=== PATIENT | male | born 1960 | race Caucasian/White ===

== ENCOUNTER 2021-04-22 10:18 | Outpatient (REF) | payer OTHER, SELFPAY ==
[2021-04-22 10:21] LABS: MANUAL DIFF FLAG NO
[2021-04-22 10:53] LABS: Basophils Percent Auto 0.2 % (0-2); Eosinophils Absolute Auto 0.1 X10*3/uL (0.0-0.4); Eosinophils Percent Auto 1.2 % (0-4); Hematocrit 45.9 % (42-52); Hemoglobin 15.4 g/dl (14.0-18.0); Imm Gran Abs Auto 0.01 X10*3/uL (0.00-0.03); Imm Gran Pct Auto 0.2 % (0.0-0.4); Lymphocytes Absolute Auto 1.8 X10*3/uL (1.2-4.9); Lymphocytes Percent Auto 34.2 % (20-40); Mean Corpuscular HGB Conc 33.6 g/dl (31.0-36.0); Mean Corpuscular Hemoglobin 31.6 pg (27.0-33.0); Mean Corpuscular Volume 94.3 fL (80-98); Mean Platelet Volume 10.9 fL (9.4-12.4); Monocytes Absolute Auto 0.6 X10*3/uL (0.1-1.2); Monocytes Percent Auto 10.9 % (2-11); Neutrophils Absolute Auto 2.8 X10*3/uL (2.0-8.3); Neutrophils Percent Auto 53.3 % (45-73); Platelet Count 276 X10*3/uL (160-400); Red Blood Count 4.87 X10*6/uL (4.60-5.80); White Blood Count 5.2 X10*3/uL (4.8-10.8)
[2021-04-22 11:02] LABS: Glucose Urine UA NEG (NEG); Leukocyte Esterase Urine NEG (NEG); Nitrite Urine NEG (NEG); Specific Gravity - Urine 1.015 (1.005-1.025); Urine Blood NEG (NEG); Urine Ketones NEG (NEG); Urine Protein NEG (NEG-TRACE)
[2021-04-22 11:04] LABS: Appearance Urine CLEAR; Color Urine YELLOW
[2021-04-22 11:57] LABS: Alanine Aminotransferase 26 U/L (0-40); Albumin Level 4.3 g/dL (3.5-5.0); Alkaline Phosphatase 67 U/L (39-117); Anion Gap 14 (12-20); Aspartate Amino Transferase 23 U/L (5-37); Bilirubin Total 0.6 mg/dL (0.0-1.0); Blood Urea Nitrogen 16 mg/dL (9-16); Calcium 9.7 mg/dL (8.4-10.2); Carbon Dioxide 27 mmol/L (22-29); Chloride 102 mmol/L (96-108); Cholesterol 233 mg/dL; Estimated Glomerular Filt Rate > 60; Glucose Fasting 92 mg/dL (60-99); HDL Cholesterol 55 mg/dL; LDL Cholesterol Calculated 165 mg/dl; Potassium 4.2 mmol/L (3.3-5.1); Sodium 139 mmol/L (135-145); Total Protein 7.4 g/dL (6.5-8.0); Triglycerides 69 mg/dL
[2021-04-22 11:58] LABS: PSA,Total (Free>4and<10) 0.28 ng/mL (0.00-4.00)
== END 2021-04-22 10:19 | disposition home or self-care (01) ==
LOC: HO.LNP 10:18
PROVIDERS: Visit Provider Internal Medicine
DX: Z00.00 Encounter for general adult medical examination without abnormal findings (principal); Z12.5 Encounter for screening for malignant neoplasm of prostate; E78.00 Pure hypercholesterolemia, unspecified; I10 Essential (primary) hypertension
CPT/HCPCS: 80053; 80061; 81003; 84153; 85025

== ENCOUNTER 2021-12-29 12:48 | Outpatient (REF) | payer OTHER, SELFPAY ==
[2021-12-29 13:37] LABS: Thyroid Stimulating Hormone 5.35 uIU/mL (0.32-4.0)
== END 2021-12-29 12:49 | disposition home or self-care (01) ==
LOC: HO.LNP 12:48
PROVIDERS: PCP Internal Medicine; Visit Provider Internal Medicine
DX: E03.9 Hypothyroidism, unspecified (principal)
CPT/HCPCS: 84443

== ENCOUNTER 2022-04-28 13:16 | Outpatient (REF) | payer OTHER, SELFPAY ==
[2022-04-28 13:20] LABS: MANUAL DIFF FLAG NO
[2022-04-28 13:35] LABS: Basophils Percent Auto 0.3 % (0-2); Eosinophils Percent Auto 0.6 % (0-4); Hemoglobin 15.1 g/dl (14.0-18.0); Imm Gran Abs Auto 0.02 X10*3/uL (0.00-0.03); Imm Gran Pct Auto 0.3 % (0.0-0.4); Lymphocytes Absolute Auto 1.8 X10*3/uL (1.2-4.9); Lymphocytes Percent Auto 27.6 % (20-40); Mean Corpuscular HGB Conc 33.6 g/dl (31.0-36.0); Mean Corpuscular Hemoglobin 31.9 pg (27.0-33.0); Mean Corpuscular Volume 94.9 fL (80.0-98.0); Mean Platelet Volume 10.6 fL (9.4-12.4); Monocytes Absolute Auto 0.6 X10*3/uL (0.1-1.2); Monocytes Percent Auto 8.7 % (2-11); Neutrophils Percent Auto 62.5 % (45-73); Platelet Count 292 X10*3/uL (160-400); Red Blood Count 4.74 X10*6/uL (4.60-5.80); Red Cell Distribution Width 12.4 % (11.0-16.0); White Blood Count 6.4 X10*3/uL (4.8-10.8)
[2022-04-28 13:36] LABS: Appearance Urine CLEAR; Color Urine YELLOW; Glucose Urine UA NEG (NEG); Leukocyte Esterase Urine NEG (NEG); Nitrite Urine NEG (NEG); PH 7.5 (5.0-8.0); Specific Gravity - Urine 1.015 (1.005-1.025); Urine Blood NEG (NEG); Urine Ketones NEG (NEG); Urine Protein NEG (NEG-TRACE)
[2022-04-28 13:45] LABS: Amorphous Sediment Urine 1+ /LPF; RBC Urine 0 /HPF (0); Squamous Epithelial Cell Urine TRACE /LPF; WBC Urine 0 /HPF (0-4)
[2022-04-28 13:48] LABS: Alanine Aminotransferase 19 U/L (0-40); Albumin Level 4.1 g/dL (3.5-5.0); Alkaline Phosphatase 62 U/L (39-117); Anion Gap 14 (12-20); Aspartate Amino Transferase 19 U/L (5-37); Bilirubin Total 0.5 mg/dL (0.0-1.0); Blood Urea Nitrogen 14 mg/dL (9-16); Calcium 8.8 mg/dL (8.4-10.2); Carbon Dioxide 30 mmol/L (22-29); Chloride 100 mmol/L (96-108); Cholesterol 238 mg/dL; Estimated Glomerular Filt Rate > 60; Glucose Random 92 mg/dL (60-115); HDL Cholesterol 64 mg/dL; LDL Cholesterol Calculated 164 mg/dl; Potassium 4.1 mmol/L (3.3-5.1); Sodium 140 mmol/L (135-145); Total Protein 7.1 g/dL (6.5-8.0); Triglycerides 54 mg/dL
[2022-04-28 14:08] LABS: PSA,Total (Free>4and<10) 0.24 ng/mL (0.00-4.00); TSH reflex Free T4 7.09 uIU/mL (0.32-4.0)
[2022-04-28 14:46] LABS: Free T4 (Free Thyroxine) 1.07 ng/dL (0.71-1.85)
== END 2022-04-28 13:17 | disposition home or self-care (01) ==
LOC: HO.LNP 13:16
PROVIDERS: Visit Provider Internal Medicine
DX: Z00.00 Encounter for general adult medical examination without abnormal findings (principal); Z12.5 Encounter for screening for malignant neoplasm of prostate; I10 Essential (primary) hypertension; E78.00 Pure hypercholesterolemia, unspecified; E03.9 Hypothyroidism, unspecified
CPT/HCPCS: 80053; 80061; 81001; 84153; 84439; 84443; 85025

== ENCOUNTER 2023-05-03 12:22 | Outpatient (REF) | payer OTHER, SELFPAY ==
[2023-05-03 12:26] LABS: MANUAL DIFF FLAG NO
[2023-05-03 12:33] LABS: Basophils Percent Auto 0.4 % (0-2); Eosinophils Absolute Auto 0.1 X10*3/uL (0.0-0.4); Eosinophils Percent Auto 1.3 % (0-4); Hematocrit 44.9 % (42.0-52.0); Hemoglobin 15.2 g/dl (14.0-18.0); Imm Gran Abs Auto 0.01 X10*3/uL (0.00-0.03); Imm Gran Pct Auto 0.2 % (0.0-0.4); Lymphocytes Absolute Auto 1.9 X10*3/uL (1.2-4.9); Lymphocytes Percent Auto 39.7 % (20-40); Mean Corpuscular HGB Conc 33.9 g/dl (31.0-36.0); Mean Corpuscular Hemoglobin 32.1 pg (27.0-33.0); Mean Corpuscular Volume 94.9 fL (80.0-98.0); Mean Platelet Volume 11.1 fL (9.4-12.4); Monocytes Absolute Auto 0.5 X10*3/uL (0.1-1.2); Monocytes Percent Auto 9.6 % (2-11); Neutrophils Absolute Auto 2.3 x10*3/uL (2.0-8.3); Neutrophils Percent Auto 48.8 % (45-73); Platelet Count 262 X10*3/uL (160-400); Red Blood Count 4.73 X10*6/uL (4.60-5.80); White Blood Count 4.8 X10*3/uL (4.8-10.8)
[2023-05-03 12:36] LABS: Appearance Urine Clear; Color Urine Yellow; Glucose Urine UA Negative (Negative); Leukocyte Esterase Urine Negative (Negative); Nitrite Urine Negative (Negative); Specific Gravity - Urine 1.015 (1.005-1.025); Urine Blood Negative (Negative); Urine Ketones Trace mg/dL (Negative); Urine Protein Negative (Neg-Trace)
[2023-05-03 12:38] LABS: Bacteria Urine None Seen (None Seen); Hyaline Casts Urine 0-2 /LPF (0-2); RBC Urine 0-2 /HPF (0-2); Squamous Epithelial Cell Urine 0-2 /HPF (0-2); WBC Urine 0-5 /HPF (0-5)
[2023-05-03 12:54] LABS: Alanine Aminotransferase 24 U/L (0-40); Albumin Level 4.2 g/dL (3.5-5.0); Alkaline Phosphatase 59 U/L (39-117); Anion Gap 12 (12-20); Aspartate Amino Transferase 22 U/L (5-37); Bilirubin Total 0.5 mg/dL (0.0-1.0); Blood Urea Nitrogen 14 mg/dL (9-16); Calcium 9.4 mg/dL (8.4-10.2); Carbon Dioxide 29 mmol/L (22-29); Chloride 102 mmol/L (96-108); Cholesterol 258 mg/dL; Estimated Glomerular Filt Rate > 60; Glucose Fasting 81 mg/dL (60-99); HDL Cholesterol 60 mg/dL; LDL Cholesterol Calculated 182 mg/dl; Potassium 4.1 mmol/L (3.3-5.1); Sodium 139 mmol/L (135-145); Total Protein 7.6 g/dL (6.5-8.0); Triglycerides 83 mg/dL
[2023-05-03 13:10] LABS: TSH reflex Free T4 8.25 uIU/mL (0.32-4.0)
[2023-05-03 13:11] LABS: PSA,Total (Free>4and<10) 0.27 ng/mL (0.00-4.00)
[2023-05-03 14:01] LABS: Free T4 (Free Thyroxine) 0.91 ng/dL (0.71-1.85)
== END 2023-05-03 12:23 | disposition home or self-care (01) ==
LOC: HO.LNP 12:22
PROVIDERS: Visit Provider Internal Medicine
DX: Z00.00 Encounter for general adult medical examination without abnormal findings (principal); Z12.5 Encounter for screening for malignant neoplasm of prostate; I10 Essential (primary) hypertension; E03.9 Hypothyroidism, unspecified; E78.00 Pure hypercholesterolemia, unspecified
CPT/HCPCS: 80053; 80061; 81001; 84153; 84439; 84443; 85025

== ENCOUNTER 2024-06-12 11:36 | Outpatient (REF) | payer OTHER, SELFPAY ==
[2024-06-12 11:44] LABS: MANUAL DIFF FLAG NO
[2024-06-12 12:09] LABS: Basophils Percent Auto 0.4 % (0-2); Eosinophils Percent Auto 0.4 % (0-4); Hematocrit 44.2 % (42.0-52.0); Hemoglobin 15.2 g/dl (14.0-18.0); Imm Gran Abs Auto 0.02 X10*3/uL (0.00-0.03); Imm Gran Pct Auto 0.4 % (0.0-0.4); Lymphocytes Absolute Auto 1.9 X10*3/uL (1.2-4.9); Lymphocytes Percent Auto 35.9 % (20-40); Mean Corpuscular HGB Conc 34.4 g/dl (31.0-36.0); Mean Corpuscular Hemoglobin 33.1 pg (27.0-33.0); Mean Corpuscular Volume 96.3 fL (80.0-98.0); Mean Platelet Volume 10.6 fL (9.4-12.4); Monocytes Absolute Auto 0.5 X10*3/uL (0.1-1.2); Monocytes Percent Auto 10.1 % (2-11); Neutrophils Absolute Auto 2.8 x10*3/uL (2.0-8.3); Neutrophils Percent Auto 52.8 % (45-73); Platelet Count 260 X10*3/uL (160-400); Red Blood Count 4.59 X10*6/uL (4.60-5.80); Red Cell Distribution Width 12.6 % (11.0-16.0); White Blood Count 5.2 X10*3/uL (4.8-10.8)
[2024-06-12 12:13] LABS: Appearance Urine Clear; Color Urine Yellow; Glucose Urine UA Negative (Negative); Leukocyte Esterase Urine Negative (Negative); Nitrite Urine Negative (Negative); Specific Gravity - Urine 1.015 (1.005-1.025); Urine Blood Negative (Negative); Urine Ketones Negative (Negative); Urine Protein Negative (Neg-Trace)
[2024-06-12 12:15] LABS: Bacteria Urine None Seen (None Seen); Hyaline Casts Urine 0-2 /LPF (0-2); RBC Urine 0-2 /HPF (0-2); Squamous Epithelial Cell Urine 0-2 /HPF (0-2); WBC Urine 0-5 /HPF (0-5)
[2024-06-12 12:32] LABS: Alanine Aminotransferase 31 U/L (0-40); Albumin Level 4.2 g/dL (3.5-5.0); Alkaline Phosphatase 57 U/L (39-117); Anion Gap 10 (12-20); Aspartate Amino Transferase 23 U/L (5-37); Bilirubin Total 0.5 mg/dL (0.0-1.0); Blood Urea Nitrogen 12 mg/dL (9-16); Calcium 9.4 mg/dL (8.4-10.2); Carbon Dioxide 30 mmol/L (22-29); Chloride 103 mmol/L (96-108); Cholesterol 251 mg/dL (<200); Estimated Glomerular Filt Rate > 60; Glucose Fasting 93 mg/dL (60-99); HDL Cholesterol 66 mg/dL (>40); LDL Cholesterol Calculated 164 mg/dL (<100); Sodium 139 mmol/L (135-145); Total Protein 7.4 g/dL (6.5-8.0); Triglycerides 108 mg/dL (<150)
[2024-06-12 12:47] LABS: PSA,Total (Free>4and<10) 0.35 ng/mL (0.00-4.00)
[2024-06-12 12:48] LABS: TSH reflex Free T4 8.68 uIU/mL (0.32-4.0)
[2024-06-12 14:10] LABS: Free T4 (Free Thyroxine) 0.91 ng/dL (0.71-1.85)
== END 2024-06-12 11:37 | disposition home or self-care (01) ==
LOC: HO.LNP 11:36
PROVIDERS: Visit Provider Internal Medicine
DX: Z00.00 Encounter for general adult medical examination without abnormal findings (principal); I10 Essential (primary) hypertension; Z12.5 Encounter for screening for malignant neoplasm of prostate; E78.00 Pure hypercholesterolemia, unspecified; E03.9 Hypothyroidism, unspecified
CPT/HCPCS: 80053; 80061; 81001; 84153; 84439; 84443; 85025

== ENCOUNTER 2025-06-19 10:24 | Outpatient (REF) | payer OTHER, SELFPAY ==
--- OUTSIDE RECORDS SUMMARY | 2024-06-19 04:30 | XMS_ITS ---
Author Organization Khadar Martinez MD Address [address] [place], [place] [id number] Care Team Providers Care Card Brusher Name Role Phone Khadar Martinez Primary Care Provider Allergies Allergen (clinical drug ingredient) Drug/Non Drug Allergy documented on EMR Reaction Allergy Type Onset Date Status hydromorphone Dilaudid (uncoded) itch and hives Allergy Active penicillin (uncoded) hives Allergy Active montelukast singulair (uncoded) double vision Allergy Active Results Component Value Reference Range Notes Occult Blood, Stool, Guaiac Reviewed date:06/19/2024 10:48:27 AM Interpretation:Negative Performing Lab: Notes/Report: Negative Occult Blood, Stool, Guaiac Neg Reason For Referral Reason tubular adenoma of c olon Diagnosis 1 Tubular adenoma of c olon (D12.6) Referral Organization Khadar Martinez MD Referring Provider First Name Khadar Referring Provider Last Name Juan Referring Provider Speciality Internal M edicine Referred Provider Kennedy Acuna Referred Provider Specialty Gastroentero logmaite General Notes Luna Youngblood 12:51:28 PM EDT > info faxed , Luna Youngblood 06/26/2024 11:41:36 AM EDT > mailed info to patient, Luna Youngblood 10/30/2024 08:39:23 AM received a fax stating patient no showed his appt message sent to provider, Luna Youngblood 10/31/2024 09:09:07 AM > left message for patient to call office regarding above issue, Luna Youngblood 10/31/2024 11:06:22 AM > Patient called back stating he doesn't want to emelia, wants to do the [facility] instead, note will be sent to provider, Luna Youngblood 11/13/2024 02:53:47 PM >referral info mailed to patient Referral Priority Routine Referral Appointment Date 03/17/2025 REASON FOR VISIT ANNUAL EXAM Medications Medication SIG (Take, Route, Frequency, Duration) Notes Start Date End Date Status ProAir HFA 108 (90 Base) MCG/ACT 2 puffs as needed Inhalation every 6 hrs for 30 days 12/17/2017 Not-Taking Flonase 50 MCG/ACT 2 spray in each nostril Nasally Once a day Not-Taking Qvar 80 MCG/ACT 1 puff Inhalation Twice a day for 30 Not-Taking Ventolin HFA * 108 (90 Base) MCG/ACT 2 puffs as needed Inhalation every 4 hrs for 30 day(s) 01/08/2015 Not-Taking Ibuprofen 800 MG 1 tablet Orally Three times a day for 30 day(s) 03/23/2014 Not-Taking Primidone 50 MG 4 tabs Orally Twice a day Active hydroCHLOROthiazide 25 MG TAKE 1 TABLET BY MOUTH EVERY DAY Active Propranolol HCl ER 160 MG 1 capsule Oral ly Once a day for 90 days Active Ibuprofen 800 MG 1 tablet with food or milk as needed Orally Three times a day for 30 days 03/13/2022 Not-Taking Symbicort 160-4.5 MCG/ACT INHALE 2 PUFFS TWICE A DAY for 30 Not-Taking Aspir-81 81 MG 1 tablet Orally Once a day for 30 day(s) Active Social History Tobacco Use: Social History Observation Description Date Details (start date - stop date) Former Smoker NA - NA Tobacco Use/Smoking Question Answer Notes Patient is a former smoker How long has it been since y ou last smoked? > 10 years Additional Findings: Tobacco Non-User Fo rmer smoker, currently using no form of tobacco Alcohol Screen Question Answer Notes Did you have a drink contain ing alcohol in the past year? Yes How often did you have a dri nk containing alcohol in the past year? 2 to 4 times a month (2 points) How many drinks did you have on a typical day when you were drinking in the past year? 1 or 2 drinks (0 point) How often did you have 6 or more drinks on one occasion in the past year? Never (0 point) Points 2 Interpretation Negative Vital Signs Blood pressure systolic 130 mm Hg 06/19/20 24 Blood pressure diastolic 70 mm Hg 024 Height 70 in 06/19/2024 Weight 206 lbs 06/19/2024 BMI 29.55 kg/m2 06/19/2024 weight is up 2 pounds since 02-12-24 Encounters Encounter Location Date Provider Diagnosis Khadar Martinez MD [address] [place] [phone] 06/19/2024 Khadar Martinez Tubular adenoma of keyana arrington D12.6 ; Annual physical exam Z00.00 ; Aortic stenosis I35.0 ; Essential hypertension I10 ; History of aortic valve replacement Z95.2 ; Pure hypercholesterolemia E78.00 ; Colon cancer screening Z12.11 and Depression screening Z13.31 Assessments Encounter Date Diagnosis (ICD Code) Assessment Notes Treatment Notes Treatment Clinical Notes Section Notes 06/19/2024 Tubular adenoma of keyana arrington (ICD-10 - D12.6) needs appt with dr acuna 06/19/2024 Annual physical exam (ICD-10 - Z00.00) labs reviewed and discussed with patient 06/19/2024 Aortic stenosis (ICD -10 - I35.0) followed by cardiology 06/19/2024 Essential hypertensi on (ICD-10 - I10) doing well, will continue current regiment 06/19/2024 History of aortic va lve replacement (ICD-10 - Z95.2) doing well, followed by Cardiology 06/19/2024 Pure hypercholesterolemia (ICD-10 - E78.00) has come down 20 points, will continue current regiment and will continue to monitor 06/19/2024 Colon cancer screeni ng (ICD-10 - Z12.11) guaiac negative 06/19/2024 Depression screening (ICD-10 - Z13.31) negative screen Plan Of Treatment Treatment Notes Assessment Notes Tubular adenoma of colon needs appt with dr acuna Annual physical exam labs reviewed and d iscussed with patient Aortic stenosis followed by cardiolo gy Essential hypertension doing well, will continue current regiment History of aortic valve replacement beulah oro well, followed by Cardiology Pure hypercholesterolemia has come down 20 points, will continue current regiment and will continue to monitor Colon cancer screening guaiac negative Depression screening negative screen Referrals Referral Date Details 06/19/2024 06/19/2024, tubular adenoma of colon, Kennedy Acuna Next Appt Details Follow Up: 6 Months, Reason: Provider Name:Khadar Wells ier, 07/03/2025 08:30:00 AM, [address] [place] [address], [address], [place], [place], [id number], Progress Notes * NABEEL LeoncioDOB:[birth year] (64 yo M)Acc No.[id number]:06/19/2024 Progress Notes Patient: Leoncio Leon Provider: Daryl Martinez MD :1960 A ge:64 Y S ex:Male Date:06/19/2024 Address:[address] [place], [place] [id number] Subjective: * Chief Complaints: * A NNUAL EXAM * HPI: D epression Screening: PHQ-9 L ittle interest or pleasure in doing things N ot at all, F eeling down, depressed, or hopeless N ot at all, T rouble falling or staying asleep, or sleeping too much N ot at all, F eeling tired or having little energy N ot at all, P oor appetite or overeating N ot at all, F eeling bad about yourself or that you are a failure, or have let yourself or your family down N ot at all, T rouble concentrating on things, such as reading the newspaper or watching television N ot at all, M oving or speaking so slowly that other people could have noticed; or the opposite, being so fidgety or restless that you have been moving around a lot more than usual N ot at all, T houghts that you would be better off or of hurting yourself in some way N ot at all, T otal Score 0 . I nterpretation and Intervention D epression Screening Findings N egative, F ollow-Up for Depression : review of PHQ-9 found negative result, no follow-up needed. C ommunication Needs: Communication Needs D oes the patient have a hearing impairment N o, D oes the patient have a vision impairment? Y es, I f yes, what is the vision impairment? G lasses, D oes the patient have a cognition impairment? N o. S JESSICA Questions: SDOH Questions I n the past year have you been worried about losing housing? N o, I n the past year have you or any family members you live with been unable to get any of the following when it was really needed? Check all that apply: N one. S ymptom(s): patient is a 64 yo male here for yearly evaluation with revie of recent labs and follow up of chronic issues. * ROS: G eneral/Constitutional: Patient denies f atigue , headache. C hange in appetite?denies. C hills d enies. F ever d enies. O phthalmologic: Blurred vision d enies. D ischarge d enies. P ain d enies. E NT: Patient denies d ecreased sense of smell , any loss of taste , sore throat. D ecreased hearing d enies. S ore throat d enies. S wollen glands d enies. E ndocrine: Cold intolerance d enies. E xcessive thirst d enies. H eat intolerance d enies. W eight loss d enies. R espiratory: Cough d enies. S hortness of breath at rest d enies. S hortness of breath with exertion d enies. W heezing d enies. C ardiovascular: Chest pain at rest d enies. C hest pain with exertion?denies. I rregular heartbeat d enies. S hortness of breath d enies. ? G astrointestinal: Abdominal pain d enies. C hange in bowel habits d enies. D iarrhea d enies. N ausea d enies. R ectal bleeding d enies. V omiting d enies . G enitourinary: Blood in urine d enies. D ifficulty urinating d enies. F requent urination d enies. M usculoskeletal: Patient denies m uscle aches. P ainful joints d enies. W eakness d enies. P eripheral Vascular: Patient denies r ed and blue toes. S kin: Dry skin d enies. I tching d enies. D enies?Mole(s), changes in moles, new moles or any lesions of concern. D enies P hotosensitivity. R curtis d enies. N eurologic: Dizziness d enies. F ainting d enies. H eadache?denies. * Medical History: * Surgical History: * Hospitalization/Major Diagno stic Procedure: * Family History: F ather: alive 83 yrs, diabetes mellitus. M other: alive 83 yrs, Healthy. 1 brother(s) , 1 sister(s) - healthy. . Denies mental health/substance abuse family history, Denies mental health/substance abuse family history, No pertinent family medical history, No pertinent family medical history, No pertinent family medical history. * Social History: T obacco Use: T obacco Use/Smoking P atient is a f ormer smoker, H ow long has it been since you last smoked? > 10 years, A dditional Findings: Tobacco Non-User F ormer smoker, currently using no form of tobacco. D rugs/Alcohol: A lcohol Screen D id you have a drink containing alcohol in the past year? Y es, H ow often did you have a drink containing alcohol in the past year? 2 to 4 times a month (2 points), H ow many drinks did you have on a typical day when you were drinking in the past year? 1 or 2 drinks (0 point), H ow often did you have 6 or more drinks on one occasion in the past year? N ever (0 point), P oints 2 , I nterpretation N egative. M iscellaneous: C affeine: yes, frequency:, 1-2 cups per day. no Children. Community involvements: yes, volunteer for [employer]. Exercise: yes, 3-4 times per week golf hiking. Housing: owning. Living with: spouse. Marital status: . Occupation: works full- time. Pets: none,. no Travel outside of the [place]. * Medications: T akingAspir-81 81 MG Tablet Delayed Release 1 tablet Orally Once a dayPrimidone 50 MG Tablet 4 tabs Orally Twice a dayhydroCHLOROthiazide 25 MG Tablet TAKE 1 TABLET BY MOUTH EVERY DAY Propranolol HCl ER 160 MG Capsule Extended Release 24 Hour 1 capsule Orally Once a dayTaking Aspir-81 81 MG Tablet Delayed Release 1 tablet Orally Once a dayTaking Primidone 50 MG Tablet 4 tabs Orally Twice a dayTaking hydroCHLOROthiazide 25 MG Tablet TAKE 1 TABLET BY MOUTH EVERY DAY Taking Propranolol HCl ER 160 MG Capsule Extended Release 24 Hour 1 capsule Orally Once a dayNot- Taking/PRNIbuprofen 800 MG Tablet 1 tablet with food or milk as needed Orally Three times a daySymbicort 160-4.5 MCG/ACT Aerosol INHALE 2 PUFFS TWICE A DAY ProAir HFA 108 (90 Base) MCG/ACT Aerosol Solution 2 puffs as needed Inhalation every 6 hrsFlonase 50 MCG/ACT Suspension 2 spray in each nostril Nasally Once a dayQvar 80 MCG/ACT Aerosol Solution 1 puff Inhalation Twice a dayVentolin HFA * 108 (90 Base) MCG/ACT Aerosol Solution 2 puffs as needed Inhalation every 4 hrsIbuprofen 800 MG Tablet 1 tablet Orally Three times a dayMedication List reviewed and reconciled with the patientNot- Taking/PRN Ibuprofen 800 MG Tablet 1 tablet with food or milk as needed Orally Three times a dayNot-Taking/PRN Symbicort 160-4.5 MCG/ACT Aerosol INHALE 2 PUFFS TWICE A DAY Not-Taking/PRN ProAir HFA 108 (90 Base) MCG/ACT Aerosol Solution 2 puffs as needed Inhalation every 6 hrsNot-Taking/PRN Flonase 50 MCG/ACT Suspension 2 spray in each nostril Nasally Once a dayNot-Taking/PRN Qvar 80 MCG/ACT Aerosol Solution 1 puff Inhalation Twice a dayNot-Taking/PRN Ventolin HFA * 108 (90 Base) MCG/ACT Aerosol Solution 2 puffs as needed Inhalation every 4 hrsNot-Taking/PRN Ibuprofen 800 MG Tablet 1 tablet Orally Three times a dayMedication List reviewed and reconciled with the patient * Allergies: s ingulair: double visionpenicillin: hivesDilaudid: itch and hivesyes[Allergies Verified] Objective: * Vitals: H t: 70, Wt:206, BMI:29.55, BP: 152/76,130/70, Repeat BP:130/70 weight is up 2 pounds since 02-12-24. * P ast Orders: L ab:UA ClnCatch+Micro w/rflx Cult (Order Date - 06/12/2024) (Collection Date - 06/12/2024) Value Reference Range Color Urine Yellow - Appearance Urine Clear - PH 7.0 5.0-9.0 - Glucose Urine UA Negative Negative - mg/dL Urine Blood Negative Negative - Specific [place] - Urine 1.015 1.005-1.025 - Urine Protein Negative Neg-Trace - mg/dL Urine Ketones Negative Negative - mg/dL Nitrite Urine Negative Negative - Leukocyte Esterase Urine Negative Negative - RBC Urine 0-2 0-2 - /HPF WBC Urine 0-5 0-5 - /HPF Squamous Epithelial Cell Urine 0-2 0-2 - /HP F Bacteria Urine None Seen None Seen - Hyaline Casts Urine 0-2 0-2 - /LPF L ab:Free T4 (Free Thyroxine) (Order Date - 06/12/2024) (Collection Date - 06/12/2024) Value Reference Range Free T4 (Free Thyroxine) 0.91 0.71-1.85 - ng/ dL L ab:Complete Blood Count Auto Diff (Order Date - 06/12/2024) (Collection Date - 06/12/2024) Value Reference Range White Blood Count 5.2 4.8-10.8 - X10*3/uL Red Blood Count 4.59 L 4.60-5.80 - X10*6/uL Hemoglobin 15.2 14.0-18.0 - g/dl Hematocrit 44.2 42.0-52.0 - % Mean Corpuscular Volume 96.3 80.0-98.0 - fL Mean Corpuscular Hemoglobin 33.1 H 27.0-33.0 - pg Mean Corpuscular HGB Conc 34.4 31.0-36.0 - g/ dl Red Cell Distribution Width 12.6 11.0-16.0 - % Platelet Count 260 160-400 - X10*3/uL Mean Platelet Volume 10.6 9.4-12.4 - fL Neutrophils Percent Auto 52.8 45-73 - % Imm Gran Pct Auto 0.4 0.0-0.4 - % Lymphocytes Percent Auto 35.9 20-40 - % Monocytes Percent Auto 10.1 2-11 - % Eosinophils Percent Auto 0.4 0-4 - % Basophils Percent Auto 0.4 0-2 - % NRBC Pct Auto 0.0 0.0-0.2 - /100WBC Neutrophils Absolute Auto 2.8 2.0-8.3 - x10* 3/uL Imm Gran Abs Auto 0.02 0.00-0.03 - X10*3/uL Lymphocytes Absolute Auto 1.9 1.2-4.9 - X10* 3/uL Monocytes Absolute Auto 0.5 0.1-1.2 - X10*3/ uL Eosinophils Absolute Auto 0.0 0.0-0.4 - X10* 3/uL Basophils Absolute Auto 0.0 0.0-0.2 - X10*3/ uL NRBC Abs Auto 0.000 0.0-0.012 - X10*3/uL L ab:Lipid Panel (Order Date - 06/12/2024) (Collection Date - 06/12/2024) Value Reference Range Triglycerides 108 <150 - mg/dL Cholesterol 251 H <200 - mg/dL LDL Cholesterol Calculated 164 H <100 - mg/dL HDL Cholesterol 66 >40 - mg/dL L ab:PSA,Total (Free>4and<10) (Order Date - 06/12/2024) (Collection Date - 06/12/2024) Value Reference Range PSA,Total (Free>4and<10) 0.35 0.00-4.00 - ng/ mL L ab:TSH reflex Free T4 (Order Date 06/12/2024) (Collection Date - 06/12/2024) Value Reference Range TSH reflex Free T4 8.68 H 0.32-4.0 - uIU/mL L ab:Comprehensive [place]. Panel Fast (Order Date 06/12/2024) (Collection Date - 06/12/2024) Value Reference Range Sodium 139 135-145 - mmol/L Bilirubin Total 0.5 0.0-1.0 - mg/dL Aspartate Amino Transferase 23 5-37 - U/L Alanine Aminotransferase 31 0-40 - U/L Total Protein 7.4 6.5-8.0 - g/dL Albumin Level 4.2 3.5-5.0 - g/dL Alkaline Phosphatase 57 39-117 - U/L Potassium 4.0 3.3-5.1 - mmol/L Chloride 103 96-108 - mmol/L Carbon Dioxide 30 H 22-29 - mmol/L Anion Gap 10 L 12-20 - Blood Urea Nitrogen 12 9-16 - mg/dL Creatinine 0.84 0.5-1.4 - mg/dL Estimated Glomerular Filt Rate > 60 - Glucose Fasting 93 60-99 - mg/dL Calcium 9.4 8.4-10.2 - mg/dL * Examination: G eneral Examination: GENERAL APPEARANCE: w ell developed, well nourished, in no acute distress. HEAD: n ormocephalic, atraumatic. EYES: p upils equal, round, reactive to light and accommodation, sclera non-icteric. EARS: n ormal. ORAL CAVITY: m ucosa moist. THROAT: c lear. NECK/THYROID: n odell supple, full range of motion, no cervical lymphadenopathy, no bruits. SKIN: w arm and dry, no suspicious lesions. HEART: r egular rate and rhythm, S1, S2 normal, no murmurs.? LUNGS: c lear to auscultation bilaterally. ABDOMEN: s oft, nontender, nondistended, bowel sounds present, normal, no organomegaly , no masses palpable. RECTAL EXAM: n ormal tone, no external hemorrhoids, no masses palpable, prostate normal, stool guaiac negative. MALE GENITOURINARY: u ncircumcised, no penile lesions or discharge, no testicular mass. EXTREMITIES: n o clubbing, cyanosis, or edema. NEUROLOGIC: n onfocal, motor strength normal upper and lower extremities, sensory exam intact, abnormal with intention tremor. Assessment: * Assessment: 1. A nnual physical exam - Z00.00 (Primary) 2 . T ubular adenoma of colon - D12.6 3 . A ortic stenosis - I35.0 4 . E ssential hypertension - I10 5 . H istory of aortic valve replacement - Z95.2 6 . P ure hypercholesterolemia - E78.00 7 . C olon cancer screening - Z12.11 8 . D epression screening - Z13.31 Plan: * Treatment: 2. T ubular adenoma of colon Notes: needs appt with dr acuna Referral To:[facility] Reason:tubular adenoma of colon 3. A ortic stenosis Notes: followed by cardiology 4. E ssential hypertension Notes: doing well, will continue current regiment 5. H istory of aortic valve replacement Notes: doing well, followed by Cardiology 6. P ure hypercholesterolemia Notes: has come down 20 points, will continue current regiment and will continue to monitor ? 7. C olon cancer screening L AB: Occult Blood, Stool, Guaiac N egative Value Reference Range O ccult Blood, Stool, Guaiac Neg Notes: guaiac negative??8.?Depression screening? Notes: negative screen?? * Procedure Codes: 8 2270 TEST FOR BLOOD, FECES * Preventive Medicine: Counseling: C are goal follow-up plan: C ingrideling for abnormal BMI provided?Yes, Mario breaux Normal BMI Follow-up Daryl palmer encouragement to exercise. * Follow Up: 6 Months * * Sign off status: Completed true * Provider: Daryl Martinez MD Date: Generated for Josse gallagher/Emmy/Jozefitting on: 11:17 AM EDT History and Physical Notes * HPI (History of Present Illness) Category Sub-Category Detail Notes Category Not es Symptom(s) patient is a 64 yo male here for yearly evaluation with revie of recent labs and follow up of chronic issues. Depression Screening PHQ-9 Little inte rest or pleasure in doing things: Not at all Feeling down, depressed, or hopeless: No t at all Trouble falling or staying asleep, or sl eeping too much: Not at all Feeling tired or having little energy: N ot at all Poor appetite or overeating: Not at all Feeling bad about yourself o r that you are a failure, or have let yourself or your family down: Not at all Trouble concentrating on thi ngs, such as reading the newspaper or watching television: Not at all Moving or speaking so slowly that other people could have noticed; or the opposite, being so fidgety or restless that you have been moving around a lot more than usual: Not at all Thoughts that you would be b davey off or of hurting yourself in some way: Not at all Total Score: 0 Interpretation and Intervention Depression Joss linder Findings: Negative Follow-Up for Depression: : review of PH Q-9 found negative result, no follow-up needed SDOH Questions SDOH Questions In the past year have you been worried about losing housing?: No In the past year have you or any family members you live with been unable to get any of the following when it was really needed? Check all that apply:: None Communication Needs Communication Needs Does the patient have a hearing impairment: No Does the patient have a vision impairmen t?: Yes If yes, what is the vision impairment?: Glasses Does the patient have a cognition impair ment?: No Examination Category Sub-Category Detail Notes Category Not es General Examination GENERAL APPEARANCE: well dev eloped, well nourished, in no acute distress HEAD: normocephalic, atrau matic EYES: pupils equal, round, reactive to light and accommodation, sclera non-icteric EARS: normal THROAT: clear NECK/THYROID: neck supple, full ra nge of motion, no cervical lymphadenopathy, no bruits HEART: regular rate and rhy thm, S1, S2 normal, no murmurs LUNGS: clear to auscultatio n bilaterally ABDOMEN: soft, nontender, non distended, bowel sounds present, normal, no organomegaly , no masses palpable NEUROLOGIC: nonfocal, motor stre ngth normal upper and lower extremities, sensory exam intact, abnormal with intention tremor SKIN: warm and dry, no bienvenido picious lesions EXTREMITIES: no clubbing, cyanosi s, or edema MALE GENITOURINARY: uncircumcised, no pe nile lesions or discharge, no testicular mass RECTAL EXAM: normal tone, no exte rnal hemorrhoids, no masses palpable, prostate normal, stool guaiac negative ORAL CAVITY: mucosa moist Consultation Request Notes Referral Date Referring Provider Referred Provider Not es 06/19/2024 Khadar Martinez Robert tubular ad enoma of colon
--- OUTSIDE RECORDS SUMMARY | 2024-10-24 09:00 | XMS_ITS ---
Author Organization [facility] Address [address] [place] [id number] Care Team Providers Care Blender Helper Name Role Phone Khadar Martinez MD Primary Care Provider Willie Wilkerson [phone] REASON FOR VISIT Patient presents today for a colon screening Medications Medication SIG (Take, Route, Frequency, Duration) Notes Start Date End Date Status Propranolol HCl ER 160 MG TAKE 1 CAPSULE BY MOUTH EVERY DAY ONCE A DAY Oral Once a day Active hydroCHLOROthiazide 25 MG TAKE 1 TABLET BY MOUTH EVERY DAY Oral Once a day Active Flovent HFA 44 MCG/ACT 1 puff Inhalation Twice a day Active Primidone 50 MG 1 Orally QHS A ctive Aspirin 81 MG 1 tablet Orally Once a day Active Albuterol 90 MCG/ACT as directed Inhalat ion as needed Active Encounters Encounter Location Date Provider Diagnosis [facility] [address] [place] [phone] 10/24/2024 Willie Reese Plan Of Treatment No Information Progress Notes * ADI LEES IIIDOB:[birth year] (65 yo M)Acc No.[id number]:10/24/2024 Progress Notes Patient: ADI WALSH III Provider: Nasreen Reese MD :1960 A ge:64 Y S ex:Male Date:10/24/2024 Address:[address] [place] [address] [id number] Pcp:Khadar Martinez MD Subjective: * Chief Complaints: * 1 . Patient presents today for a colon screening. * Medical History: * Medications: T aking Aspirin 81 MG Tablet Chewable 1 tablet Orally Once a day , Taking Albuterol 90 MCG/ACT Aerosol Solution as directed Inhalation as needed , Taking Primidone 50 MG Tablet 1 Orally QHS , Taking Flovent HFA 44 MCG/ACT Aerosol 1 puff Inhalation Twice a day , Taking hydroCHLOROthiazide 25 MG Tablet TAKE 1 TABLET BY MOUTH EVERY DAY Oral Once a day , Taking Propranolol HCl ER 160 MG Capsule Extended Release 24 Hour TAKE 1 CAPSULE BY MOUTH EVERY DAY ONCE A DAY Oral Once a day Objective: * Vitals: Assessment: Plan: * Treatment: * * The named appointment provid er may or may not be the originator of this progress note, and it is not deemed complete until electronically signed by the appointment provider. Sign off status: Pending * Provider: Nasreen Reese MD Date: 0 10/24/2024 Generated for Josse gallagher/Emmy/Airam on: 1 11:17 AM EDT
--- OUTSIDE RECORDS SUMMARY | 2024-10-31 07:08 | XMS_ITS ---
Author Organization Khadar Martinez MD Address [address] [place] [phone] Care Team Providers Care Aluminizer Name Role Phone Khadar Martinez Primary Care Provider REASON FOR VISIT GI appt n/s Encounters Encounter Location Date Provider Diagnosis Khadar Martinez MD [address] [place] [phone] 10/31/2024 Khadar Martinez Tubular adenoma of colon 211.3 and Tubular adenoma of colon D12.6 Assessments Encounter Date Diagnosis (ICD Code) Assessment Notes Treatment Notes Treatment Clinical Notes Section Notes 10/31/2024 Tubular adenoma of colon (ICD9-CM - 211.3) 10/31/2024 Tubular adenoma of colon (ICD-10 - D12.6) Plan Of Treatment Pending Test Test Name Order Date COLOGUARD 10/31/2024 Next Appt Details Provider Name:Khadar pandey, 07/03/2025 08:30:00 AM, [address], [address], [place], [place], [phone], Progress Notes * Leoncio CHAMBERSDOB:[birth year] (64 yo M)Acc No.[id number]:10/31/2024 Patient: Leoncio WALSH :1960 A ge:64 Y S ex:Male Address:[address] [place] [id number] Subjective: * Chief Complaints: * G I appt n/s * Medical History: * Surgical History: * Hospitalization/Major Diagno stic Procedure: * Medications: Objective: * Vitals: * Physical Examination: Assessment: * Assessment: 1. T ubular adenoma of colon - 211.3 2 . T ubular adenoma of colon - D12.6? Plan: * Treatment: * Procedure Codes: * true * Date: Generated for Josse gallagher/Emmy/eTransmitting on: 11:16 AM EDT
--- OUTSIDE RECORDS SUMMARY | 2025-03-16 05:18 | XMS_ITS ---
Author Organization Khadar Martinez MD Address [address] [place] [phone] Care Team Providers Care Transportation Job Titles Name Role Phone Khadar Martinez Primary Care Provider REASON FOR VISIT REFILL HYDROCHLOROTHIAZIDE Medications Medication SIG (Take, Route, Frequency, Duration) Notes Start Date End Date Status hydroCHLOROthiazide 25 MG TAKE 1 TABLET BY MOUTH EVERY DAY Orally Once a day for 90 days Active Encounters Encounter Location Date Provider Diagnosis Khadar Martinez MD [address] [place] [phone] 03/16/2025 Khadar Martinez Essential hypertension I10 Assessments Encounter Date Diagnosis (ICD Code) Assessment Notes Treatment Notes Treatment Clinical Notes Section Notes 03/16/2025 Essential hypertension (ICD-10 - I10) Plan Of Treatment Medication Medication Name Sig Start Date Stop Date Notes hydroCHLOROthiazide 25 MG TAKE 1 TABLET BY MOUTH EVERY DAY Orally Once a day for 90 days Next Appt Details Provider Name:Khadar pandey, 07/03/2025 08:30:00 AM, [address] [facility], [address], [place], [place], [phone], Progress Notes * NABEELLeoncioDOB:[birth year] (65 yo M)Acc No.[id number]:03/16/2025 Patient: Leoncio WALSH :1960 A ge:65 Y S ex:Male Address:[address] [place] [address] * Refills Refill hydroCHLOROthiazide Tablet, 25 MG, Orally, 90, TAKE 1 TABLET BY MOUTH EVERY DAY, Once a day, 90 days, Refills=3 * true * Date: Generated for Josse gallagher/Emmy/Jozefitting on: 11:17 AM EDT
--- OUTSIDE RECORDS SUMMARY | 2025-03-24 06:12 | XMS_ITS ---
Author Organization Khadar Martinez MD Address [address] [place] [phone] Care Team Providers Care Batch Analyst Name Role Phone Khadar Martinez Primary Care Provider REASON FOR VISIT refill Medications Medication SIG (Take, Route, Frequency, Duration) Notes Start Date End Date Status hydroCHLOROthiazide 25 MG TAKE 1 TABLET BY MOUTH EVERY DAY Orally Once a day for 90 days Active Encounters Encounter Location Date Provider Diagnosis Khadar Martinez MD [address] [place] [phone] 03/24/2025 Khadar Martinez Essential hypertension I10 Assessments Encounter Date Diagnosis (ICD Code) Assessment Notes Treatment Notes Treatment Clinical Notes Section Notes 03/24/2025 Essential hypertension (ICD-10 - I10) Plan Of Treatment Medication Medication Name Sig Start Date Stop Date Notes hydroCHLOROthiazide 25 MG TAKE 1 TABLET BY MOUTH EVERY DAY Orally Once a day for 90 days Next Appt Details Provider Name:Khadar pandey, 07/03/2025 08:30:00 AM, 10 [facility], [address], [place], [place], [phone], Progress Notes * NABEELLeoncioDOB:[birth year] (65 yo M)Acc No.[id number]:03/24/2025 Patient: Leoncio WALSH :1960 A ge:65 Y S ex:Male Address:[address] [place] [address] * Refills Refill hydroCHLOROthiazide Tablet, 25 MG, Orally, 90, TAKE 1 TABLET BY MOUTH EVERY DAY, Once a day, 90 days, Refills=3 * true * Date: Generated for Josse gallagher/Emmy/Jozefitting on: 11:17 AM EDT
--- OUTSIDE RECORDS SUMMARY | 2025-06-19 03:00 | XMS_ITS ---
Author Organization Khadar Martinez MD Address [address] [place], [place] [phone] Care Team Providers Care Delinquent Account Clerk Name Role Phone Khadar Martinez Primary Care Provider Results Component Value Reference Range Notes Complete Blood Count Auto Di ff (Not yet reviewed by provider) Interpretation: Performing Lab:[facility], [address] [place] [phone] Notes/Report: White Blood Count 4.7 4.8-10.8 X10*3/uL Red Blood Count 4.64 4.60-5.80 X10*6/uL Hemoglobin 15.3 14.0-18.0 g/dl Hematocrit 44.5 42.0-52.0 % Mean Corpuscular Volume 95.9 80.0-98.0 fL Mean Corpuscular Hemoglobin 33.0 27.0-33.0 pg Mean Corpuscular HGB Conc 34.4 31.0-36.0 g/dl Red Cell Distribution Width 12.3 11.0-16.0 % Platelet Count 232 160-400 X10*3/uL Mean Platelet Volume 11.0 9.4-12.4 fL Neutrophils Percent Auto 41.8 45-73 % Imm Gran Pct Auto 0.2 0.0-0.4 % Lymphocytes Percent Auto 45.0 20-40 % Monocytes Percent Auto 12.0 2-11 % Eosinophils Percent Auto 0.6 0-4 % Basophils Percent Auto 0.4 0-2 % NRBC Pct Auto 0.0 0.0-0.2 /100WBC Neutrophils Absolute Auto 2.0 2.0-8.3 x10*3/u L Imm Gran Abs Auto 0.01 0.00-0.03 X10*3/uL Lymphocytes Absolute Auto 2.1 1.2-4.9 X10*3/u L Monocytes Absolute Auto 0.6 0.1-1.2 X10*3/uL Eosinophils Absolute Auto 0.0 0.0-0.4 X10*3/u L Basophils Absolute Auto 0.0 0.0-0.2 X10*3/uL NRBC Abs Auto 0.000 0.0-0.012 X10*3/uL REASON FOR VISIT yearly fasting labs Encounters Encounter Location Date Provider Diagnosis Khadar Martinez MD [address] [place] [phone] 06/19/2025 Khadar Martinez Blood tests for arturo ine general physical examination Z00.00 ; Essential hypertension I10 ; Pure hypercholesterolemia E78.00 and Hypothyroidism E03.9 Assessments Encounter Date Diagnosis (ICD Code) Assessment Notes Treatment Notes Treatment Clinical Notes Section Notes 06/19/2025 Blood tests for arturo ine general physical examination (ICD-10 - Z00.00) 06/19/2025 Essential hypertensi on (ICD-10 - I10) 06/19/2025 Pure hypercholesterolemia (ICD-10 - E78.00) 06/19/2025 Hypothyroidism (ICD- 10 - E03.9) Plan Of Treatment Pending Test Test Name Order Date Complete Blood Count Auto Diff Comprehensive [place]. Panel Fast Lipid Panel 06/19/2025 PSA,Total (Free>4and<10) 06/19/2025 TSH reflex Free T4 06/19/2025 UA ClnCatch+Micro w/rflx Cult 06/19/2025 Next Appt Details Provider Name:Khadar Wells ier, 07/03/2025 08:30:00 AM, 10 [facility], [address], [place], [place], [phone], Progress Notes * Leoncio CHAMBERSDOB:[birth year] (65 yo M)Acc No.[id number]:06/19/2025 Progress Note Patient: Leoncio WALSH Provider: Daryl Martinez MD :1960 A ge:65 Y S ex:Male Date:06/19/2025 Address:[address] [place], [place] [phone] Subjective: * Chief Complaints: * 1 . Yearly fasting labs. * Medical History: Objective: * Vitals: Assessment: * Assessment: 1. B lood tests for routine general physical examination - Z00.00 (Primary) 2 .?Essential hypertension - I10 3 . P ure hypercholesterolemia - E78.00 ? 4 . H ypothyroidism - E03.9 Plan: * Treatment: 2. E ssential hypertension L AB: Complete Blood Count Auto Diff (Collection Date & Time - 06/19/2025 10:26 AM) L AB: Comprehensive [place]. Panel Fast L AB: Lipid Panel L AB: PSA,Total (Free>4and<10) L AB: TSH reflex Free T4 L AB: UA ClnCatch+Micro w/rflx Cult 3. P ure hypercholesterolemia L AB: Complete Blood Count Auto Diff (Collection Date & Time - 06/19/2025 10:26 AM) L AB: Comprehensive [place]. Panel Fast L AB: Lipid Panel L AB: PSA,Total (Free>4and<10) L AB: TSH reflex Free T4 L AB: UA ClnCatch+Micro w/rflx Cult 4. H ypothyroidism L AB: Complete Blood Count Auto Diff (Collection Date & Time - 06/19/2025 10:26 AM) L AB: Comprehensive [place]. Panel Fast L AB: Lipid Panel L AB: PSA,Total (Free>4and<10) L AB: TSH reflex Free T4 L AB: UA ClnCatch+Micro w/rflx Cult * Procedure Codes: 3 6415 VENIPUNCT, ROUTINE* * * The named appointment provid er may or may not be the originator of this progress note, and it is not deemed complete until electronically signed by the appointment provider. Sign off status: Pending * Provider: Daryl Martinez MD Date: Generated for Josse gallagher/Emmy/Airam on: 11:16 AM EDT
[2025-06-19 10:29] LABS: MANUAL DIFF FLAG NO
[2025-06-19 11:09] LABS: Hematocrit 44.5 % (42.0-52.0); Hemoglobin 15.3 g/dl (14.0-18.0); Imm Gran Abs Auto 0.01 X10*3/uL (0.00-0.03); Imm Gran Pct Auto 0.2 % (0.0-0.4); Lymphocytes Absolute Auto 2.1 X10*3/uL (1.2-4.9); Mean Corpuscular HGB Conc 34.4 g/dl (31.0-36.0); Mean Corpuscular Hemoglobin 33.0 pg (27.0-33.0); Mean Corpuscular Volume 95.9 fL (80.0-98.0); NRBC Abs Auto 0.000 X10*3/uL (0.0-0.012); NRBC Pct Auto 0.0 /100WBC (0.0-0.2); Platelet Count 232 X10*3/uL (160-400); Red Blood Count 4.64 X10*6/uL (4.60-5.80); White Blood Count 4.7 X10*3/uL (4.8-10.8)
[2025-06-19 11:12] LABS: Appearance Urine Clear; Glucose Urine UA Negative (Negative); PH 7.0 (5.0-9.0); Specific Gravity - Urine 1.020 (1.005-1.025)
--- OUTSIDE RECORDS SUMMARY | 2025-06-19 11:17 | XMS_ITS | Patient Health Record ---
Author Organization Khadar Martinez MD Address [address] [place], [place] [phone] Care Team Providers Care Supervisor Coremaker Name Role Phone Khadar Martinez Primary Care Provider [phone] Allergies Allergen (clinical drug ingredient) Drug/Non Drug Allergy documented on EMR Reaction Allergy Type Onset Date Status hydromorphone Dilaudid (uncoded) itch and hives Allergy Active penicillin (uncoded) hives Allergy Active montelukast singulair (uncoded) double vision Allergy Active Results Component Value Reference Range Notes Complete Blood Count Auto Di ff (Not yet reviewed by provider) Interpretation: Performing Lab:[facility], [address] [place] [phone] Notes/Report: White Blood Count 4.7 4.8-10.8 X10*3/uL [...] X10*3/uL NRBC Abs Auto 0.000 0.0-0.012 X10*3/uL Occult Blood, Stool, Guaiac Reviewed date:06/19/2024 10:48:27 AM Interpretation:Negative Performing Lab: Notes/Report: Negative Occult Blood, Stool, Guaiac Neg Hold Lav - Possible Hematolo gy (Not yet reviewed by provider) Interpretation: Performing Lab:[facility], [address] [place] [phone] Notes/Report: Hold Lav - Possible Hematology SEE NOTE Specimen will be held untested for 8 hours. Call Hematology if testing is desired. Reason For Referral Reason tubular adenoma of c olon Diagnosis 1 Tubular adenoma of c olon (D12.6) Referral Organization Khadar Martinez MD Referring Provider First Name Khadar Referring Provider Last Name Juan Referring Provider Speciality Internal M edicine Referred Provider Kennedy Acuna Referred Provider Specialty Gastroentero logy General Notes Ford,Luna 12:51:28 PM EDT > info faxed , [...] Referral Priority Routine Referral Appointment Date 03/17/2025 Medications Medication SIG (Take, Route, Frequency, Duration) Notes Start Date End Date Status Aspir-81 81 MG 1 tablet Orally Once a day for 30 day(s) Active Primidone 50 MG 4 tabs Orally Twice a day Active Propranolol HCl ER 160 MG 1 capsule Oral ly Once a day for 90 days Active Ibuprofen 800 MG 1 tablet with food or milk as needed Orally Three times a day for 30 days 03/13/2022 Not-Taking Symbicort 160-4.5 MCG/ACT INHALE 2 PUFFS TWICE A DAY for 30 Not-Taking ProAir HFA 108 (90 Base) MCG/ACT 2 puffs as needed Inhalation every 6 hrs for 30 days 12/17/2017 Not-Taking Flonase 50 MCG/ACT 2 spray in each nostril Nasally Once a day Not-Taking hydroCHLOROthiazide 25 MG TAKE 1 TABLET BY MOUTH EVERY DAY Orally Once a day for 90 days Active Qvar 80 MCG/ACT 1 puff Inhalation Twice a day for 30 Not-Taking Ventolin HFA * 108 (90 Base) MCG/ACT 2 puffs as needed Inhalation every 4 hrs for 30 day(s) 01/08/2015 Not-Taking Ibuprofen 800 MG 1 tablet Orally Three times a day for 30 day(s) 03/23/2014 Not-Taking Immunizations Vaccine Route Administration Date Status Comme nts DECLINED, FLU Unknown 11/18/2012 Administered Flu Vaccine Unknown 09/30/2013 Administered [facility] PPSV23 (Pnemovax) Unknown 09/30/2013 Administered [facility] Prevnar 13 IM Intramuscular 01/08/2015 Administered Covid Vaccine Unknown 12/23/2020 Administered Gab De Guzman SARS-COV-2 Pfizer Unknown 09/19/2021 Administered Flu Vaccine Unknown 01/08/2015 Refused Fluarix Quadrivalent Unknown 10/06/2016 Refused PPSV23 (Pnemovax) Unknown 04/01/2019 Refused TDaP Unknown 04/10/2019 Refused Shingrix Unknown 04/10/2019 Refused Fluarix Quadrivalent Unknown 10/09/2019 Refused Social History Tobacco Use: Social History Observation [...] Never (0 point) Points 2 Interpretation Negative Problems Problem Type SNOMED Code ICD Code Onset Dates Problem Status W/U Status Risk Notes Problem 125751064 Asbestos exposur e (Z77.090) Active confirmed Problem 421558729 Essential tremor (G25.0) Active confirmed Problem 49413158 Chronic frontal sinusitis (J32.1) Active confirmed Problem 111345644 Body mass index (BMI) 31.0-31.9, adult (Z68.31) Active confirmed Problem 62985405 Aortic stenosis (I35.0) Active confirmed Problem 401981195 Tubular adenoma of colon (D12.6) Active confirmed Problem 66394289 Essential hypert ension (I10) Active confirmed Problem 667239732 Mild intermitten t asthma without complication (J45.20) Active confirmed Problem Hypothyroidism (50999746) Hypothyroidism (E03.9) Active confirmed Problem 6919945955940 History of aorti c valve replacement (Z95.2) Active confirmed Problem 658872265 Gall stones (K80.20) Active confirmed Problem 450560765 Pure hypercholesterolemia (E78.00) Active confirmed Vital Signs Blood pressure diastolic 70 mm Hg 06/19/2024 marva ght is up 2 pounds since 02-12-24 Height 70 in 06/19/2024 weight is up 2 pounds since 02-12-24 Blood pressure systolic 130 mm Hg 06/19/2024 weig ht is up 2 pounds since 02-12-24 Weight 206 lbs 06/19/2024 weight is up 2 pounds since 02-12-24 BMI 29.55 kg/m2 06/19/2024 weight is up 2 pounds since 02-12-24 Encounters Encounter Location Date Provider Diagnosis Khadar Martinez MD [address] [place] [address] [address] [place] [phone] 06/19/2025 Khadar Martinez Blood tests for rout ine general physical examination Z00.00 ; Essential hypertension I10 ; Pure hypercholesterolemia E78.00 and Hypothyroidism E03.9 Khadar Martinez MD [address] [place] [address] Drive [address] [place] [phone] 06/19/2024 Khadar Martinez Tubular adenoma of c olon D12.6 ; Annual physical exam Z00.00 ; Aortic stenosis I35.0 ; Essential hypertension I10 ; History of aortic valve replacement Z95.2 ; Pure hypercholesterolemia E78.00 ; Colon cancer screening Z12.11 and Depression screening Z13.31 Khadar Martinez MD [address] [place] [address] [phone] 10/31/2024 Khadar Martinez Tubular adenoma of c olon 211.3 and Tubular adenoma of colon D12.6 Khadar Martinez MD [address] [place] [address] [address] [phone] 03/16/2025 Khadar Martinez Essential hypertensi on I10 Khadar Martinez MD [address] [place] [address] [address] [phone] 03/24/2025 Khadar Martinez Essential hypertensi on I10 Assessments Encounter Date Diagnosis (ICD Code) Assessment Notes Treatment Notes Treatment Clinical Notes Section Notes 06/19/20[address] tests [address] ine general physical examination (ICD-10 - Z00.00) 06/19/2024 Tubular adenoma of c olon (ICD-10 - D12.6) needs appt with dr acuna 06/19/2024 Annual physical exam (ICD-10 - Z00.00) labs reviewed and discussed with patient 10/31/2024 Tubular adenoma of keyana arrington (ICD9-CM - 211.3) 03/16/2025 Essential hypertensi on (ICD-10 - I10) 03/24/2025 Essential hypertensi on (ICD-10 - I10) 06/19/2025 Essential hypertensi on (ICD-10 - I10) 06/19/2024 Aortic stenosis (ICD -10 - I35.0) followed by cardiology 10/31/2024 Tubular adenoma of keyana arrington (ICD-10 - D12.6) 06/19/2025 Pure hypercholesterolemia (ICD-10 - E78.00) 06/19/2024 Essential hypertensi on (ICD-10 - I10) doing well, will continue current regiment 06/19/2025 Hypothyroidism (ICD- 10 - E03.9) 06/19/2024 History of aortic va lve replacement (ICD-10 - Z95.2) doing well, followed by Cardiology 06/19/2024 Pure hypercholesterolemia (ICD-10 - E78.00) has come down 20 points, will continue current regiment and will continue to monitor 06/19/2024 Colon cancer screeni ng (ICD-10 - Z12.11) guaiac negative 06/19/2024 Depression screening (ICD-10 - Z13.31) negative screen Plan Of Treatment Pending Test Test Name Order Date Electrocardiogram (EKG) 02/08/2018 Electrocardiogram (EKG) 01/14/2016 Electrocardiogram (EKG) 01/26/2017 XR CHEST 2 VIEW PA & LAT 04/10/2019 COLOGUARD 10/31/2024 Complete Blood Count Auto Diff 5 Hold Lav - Possible Hematology 5 Comprehensive [place]. Panel Fast 5 Lipid Panel 06/19/2025 PSA,Total (Free>4and<10) 06/19/2025 TSH reflex Free T4 06/19/2025 UA ClnCatch+Micro w/rflx Cult 06/19/2025 Next Appt Details Provider Name:Khadar pandey, 07/03/2025 08:30:00 AM, [address] [facility], [address], [place], [place], [phone], Insurance Providers Payer Name Payer Address Payer Phone Subscriber Number Group Number Insured Name Patient Relationship to Insured Coverage Start Date Coverage End Date [facility] [address] [facility] [address] [place] [phone] [id number] Leoncio Chambers Self - patient is the insured Medical (General) History Medical History History ICD Code colonoscopy 2007 due 2012; c olonoscopy 2013 (Dr. Acuna) - repeat 5 years; colonoscopy done 01/31/[address] Acuna - repeat 5 years(2023) CT of Chest due 07/2020
--- OUTSIDE RECORDS SUMMARY | 2025-06-19 11:17 | XMS_ITS | Encounter Summary ---
Author Organization [facility] Address [address] [facility] [address] [place] [address] Phone Care Team Providers Care Digital Product Manager Name Role Phone Khadar Martinez MD Primary Care Provider Encounter Details Date Type Department Care Team (Late st Contact Info) Description 09/08/2020 Transcribe Orders Virtual Department [address] [place] [address] Khadar Martinez MD [address] [place] [address] [place] [address] Exposure to SARS-associated coronavirus (Primary Dx) Social History Tobacco Use Types Packs/Day Years Used Date Smoking Tobacco: Never Assessed Sex and Gender Information Value Date Recorded Sex Assigned at Male 06/17/2024 8:58 AM EDT Legal Sex Male 9:46 PM EDT Gender Identity Male 06/17/2024 8:58 AM EDT Sexual Orientation Straight 06/17/2024 8: 58 AM EDT documented as of this encounter Plan of Treatment Not on file documented as of this encounter Results * COVID-19 PCR Order (09/08/2020 3:25 PM EST) COVID Testing Status Sent to [facility] Symptomatic? NO [facility] Other 09/08/2020 3:25 PM EST 09/08/2020 6:29 PM EST us Khadar Martinez MD BODY FLUIDS AND STOOLS ORDERABLES Final Result [facility] [address] [place] [address] documented in this encounter Visit Diagnoses Diagnosis Exposure to SARS-associated coronavirus- Primary documented in this encounter Additional Health Concerns Infection Onset Date Last Indicated Resolved Time CoV-Exposed Comment:Recent close contact 09/08/2020 09/08/2020 09/22/2020 1:24 AM EST CoV-Exposed Comment:Recent close contact documented in the COVID-19 PCR/PRO order 08/02/2021 08/09/2021 08/17/2021 1:[address] CoV-Risk 10/06/2021 10/06/2021 10/16/2021 1:23 AM EST CoV-Risk 09/16/2024 09/16/2024 09/27/2024 1:22 AM EST Influenza A 09/16/2024 09/16/2024 09/23/2024 1:24 AM EST CoV-Risk 10/19/2024 10/19/2024 10/30/2024 1:23 AM EST documented as of this encounter Care Teams Digital Product Manager Relationship Specialty Start Date End Date Khadar Martinez MD [address] [place] [address] [place] [id number] PCP - General Internal Medicine 09/08/20 documented as of this encounter Additional Source Comments The information contained in this document represents components of the legal health record. It is not the complete legal health record.[facility]
--- OUTSIDE RECORDS SUMMARY | 2025-06-19 11:17 | XMS_ITS | Clinical Summary ---
Author Organization [facility] Address [address] [place] [address] Care Team Providers Care Hospital Aides And Assistants Teacher Name Role Phone Khadar Marquez Primary Care Provider [phone] Allergies Active Allergy Reactions Criticality Noted Date Comments Hydromorphone Urticarial Rash 10/06/2021 Montelukast Dizzy/Confused,Other 10/06/2021 Penicillins Urticarial Rash 12/11/2023 Medications Primidone (MYSOLINE) 50 MG tablet Take 200 mg by mouth in the morning and at bedtime. Active Propranolol HCl CR (INDERAL LA) 160 MG 24 hr capsule Take 160 mg by mouth 1 (one) time each day. Active hydroCHLOROthia zide (HYDRODIURIL) 25 MG tablet Take 25 mg by mouth 1 (one) time each day. Active Azithromycin (ZITHROMAX) 500 MG tablet Take 500 mg by mouth 1 (one) time For dental procedures . 4 Active Aspirin 81 MG chewable tablet Chew 81 mg 1 (one) time each day. Active Topiramate (TOPAMAX) 25 MG tablet TAKE 1 TO 2 TABLETS BY MOUTH TWICE A DAY DIRECTED FOR TREMOR 360 tablet 4 Active Additional Information Patient not taking.Reported on 03/24/2025 Escitalopram (LEXAPRO) 5 MG tablet Take one tablet (5 mg total) by mouth 1 (one) time each day. 90 tablet 1 5 11/19/19 26 Active Encounters Date Type Department Care Team Description 03/24/2025 3:00 PM EDT Office Visit [facility] Neurology [address] [place] [address] [place] [phone] Ranjit Ibrahim MD Essential tremor (Primary Dx); Anxiety from Last 3 Months Social History Tobacco Use Types Packs/Day Years Used Date Smoking Tobacco: Never Smokeless Tobacco: Never Tobacco Cessation:Counseling Given: Not Answered Sex and Gender Information Value Date Recorded Sex Assigned at Male 10/12/2023 9:59 AM EST Legal Sex Male 9:58 AM EST Gender Identity Male 10/12/2023 9:59 AM EST Sexual Orientation Not on file Last Filed Vital Signs Vital Sign Reading Time Taken Comments Blood Pressure 165/83 03/24/2025 3:20 PM EDT Pulse 57 03/24/2025 3:20 PM EDT Temperature - - Respiratory Rate - - Oxygen Saturation - - Inhaled Oxygen Concentration - - Weight 94.3 kg (208 lb) 12/11/2023 1:02 PM EDT Height - - Body Mass Index - - Plan of Treatment Upcoming Encounters Date Type Department Care Team (Late st Contact Info) Description 10/20/2025 3:00 PM EST Office Visit [facility] Neurology [address] [phone] Ranjit Ibrahim MD [address] [address] 6 MTH RTN ESSENTIAL TREMOR Health Maintenance Due Date Last Done Comments Hepatitis C Screening 1960 DTaP/Tdap/Td (1 - Tdap) 01/28/1980 Colon Cancer Screening 2007 Pneumococcal 50+ years (1 of 1 - PCV) 01/28/2012 Zoster (Shingrix) (1 of 2) 01/28/2012 COVID-19 Vaccine (2 - 2024-2 6 season) 2025 12/23/2020 Influenza (#1) 2025 09/30/2013 RSV (1 - 1-dose 75+ series) 2037 HPV Vaccine (No Doses Required) Completed Hep A Aged Out No longer eligi ble based on patient's age to complete this topic Hep B Aged Out No longer eligi ble based on patient's age to complete this topic Hib Aged Out No longer eligi ble based on patient's age to complete this topic Meningococcal ACWY Aged Out No longer eligible based on patient's age to complete this topic Zoster (Zostavax) Discontinued Insurance [facility] Care Teams Hospital Aides And Assistants Teacher Relationship Specialty Start Date End Date Khadar Marquez KHADAR MARQUEZ [address] [place] [address] DR [facility] [phone] PCP - General Internal Medicine 09/17/14
--- OUTSIDE RECORDS SUMMARY | 2025-06-19 11:18 | XMS_ITS | Encounter Summary ---
Author Organization [facility] Address [address] [facility] [address] [place] [phone] Phone Care Team Providers Care Quarry Boss Name Role Phone Khadar Martinez MD Primary Care Provider Encounter Details Date Type Department Care Team (Late st Contact Info) Description 07/08/2024 Procedure Pass [facility], Ct Scan [address] [address] Social History Tobacco Use Types Packs/Day Years Used Date Smoking Tobacco: Former Smokeless Tobacco: Never Education Answer Date Recorded Are you interested in more education? Not on josselyn e 01/12/2023 Are you concerned about learning? Not on file 01/12/2023 No 01/12/2023 No 01/12/2023 Digital Access Answer Date Recorded No 02/10/2023 No 02/10/2023 Reliable internet access at home? Not on file 02/10/2023 Device with a working camera? Not on file Sex and Gender Information Value Date Recorded Sex Assigned at Male 06/17/2024 8:58 AM EDT Legal Sex Male 9:46 PM EDT Gender Identity Male 06/17/2024 8:58 AM EDT Sexual Orientation Straight 06/17/2024 8: 58 AM EDT documented as of this encounter Plan of Treatment Not on file documented as of this encounter Visit Diagnoses Not on filedocumented in this encounter Additional Health Concerns Infection Onset Date Last Indicated Resolved Time CoV-Risk 09/16/2024 09/16/2024 09/27/2024 1:22 AM EST Influenza A 09/16/2024 09/16/2024 09/23/2024 1:24 AM EST CoV-Risk 10/19/2024 10/19/2024 10/30/2024 1:23 AM EST documented as of this encounter Care Teams Quarry Boss Relationship Specialty Start Date End Date Khadar Martinez MD [address] [place] [address] [place] [address] PCP - General Internal Medicine 09/08/20 documented as of this encounter Additional Source Comments The information contained in this document represents components of the legal health record. It is not the complete legal health record.[facility]
--- OUTSIDE RECORDS SUMMARY | 2025-06-19 11:18 | XMS_ITS | Clinical Summary ---
Author Organization [facility] Address [address] [facility] [address] [place] [phone] Phone Care Team Providers Care Animal Anatomy Teacher Name Role Phone Khadar Martinez MD Primary Care Provider Allergies Active Allergy Reactions Criticality Noted Date Comments Hydromorphone Hives 10/06/2021 Montelukast Other (See Comments),Dizziness 09/18 Penicillin Hives 10/06/2021 Medications hydroCHLOROthia zide (HYDRODIURIL) 25 MG tablet 1 Active primidone (MYSOLINE) 50 MG tablet Take 50 mg by mouth 2 (two) times a day. Take 4 tablets 200mg bid 2 Active propranoloL (INDERAL LA) 160 mg SR capsule 1 Active aspirin 81 mg chewable tablet Take 81 mg by mouth daily. Active azithromycin (ZITHROMAX) 500 MG tablet TAKE 1 TABLET 30 TO 60 MINUTES PRIOR TO THE PROCEDURE Active fluticasone propionate (FLONASE ALLERGY RELIEF) 50 mcg/actuation nasal spray 2 spray in each nostril Nasally Once a day Active topiramate (TOPAMAX) 25 MG tablet TAKE 1 TO 2 TABLETS BY MOUTH TWICE A DAY DIRECTED FOR TREMOR 4 Active albuterol (PROAIR HFA) 90 mcg/actuation inhaler Inhale 2 puffs into the lungs every 4 (four) hours as needed for wheezing. 18 g 5 Active inhaler spacing device (AEROCHAMBER,BR EATHERITE) Spcr Inhale 1 each into the lungs every 4 (four) hours as needed. 1 each Active Active Problems Problem Noted Date Diagnosed Date Chronic frontal sinusitis 09/03/2022 Essential tremor 09/03/2022 Gallstone 09/03/2022 History of aortic valve replacement 09/03/2022 Hypothyroidism 09/03/2022 Mild intermittent asthma 09/03/2022 Pure hypercholesterolemia 09/03/2022 Tubular adenoma of colon 09/03/2022 Aortic valve disorder 03/12/2022 Arteriosclerosis of coronary artery 03/12/2022 Asthma 03/12/2022 Heart murmur 03/12/2022 Hypertension 03/12/2022 Left inguinal hernia 03/12/2022 Obesity 03/12/2022 Tremor 03/12/2022 Immunizations Immunization Administration Dates Next Due COVID-19 (Pre-07/09) Pfizer Vaccine, mRNA, PF INFLUENZA, SPLIT VIRUS, TRIVALENT W/ PRESERVATIV E IM 09/30/2013 Pneumococcal conjugate PCV13 01/08/2015 Pneumococcal polysaccharide PPSV23 09/30/2013 Social History Tobacco Use Types Packs/Day Years Used Date Smoking Tobacco: Former Smokeless Tobacco: Never Tobacco Cessation:Counseling Given: Not Answered Education Answer Date Recorded Are you interested [...] Orientation Straight 06/17/2024 8: 58 AM EDT Last Filed Vital Signs Vital Sign Reading Time Taken Comments Blood Pressure 159/94 10/21/2024 10:16 AM EST Pulse 54 10/21/2024 10:16 AM EST Temperature 36.9 C (98.5 F) 10/21/2024 10:16 AM EST Respiratory Rate 18 10/21/2024 10:16 AM EST Oxygen Saturation 100% 10/21/2024 10:16 AM EST Inhaled Oxygen Concentration - - Weight 91.2 kg (201 lb) 10/19/2024 11:33 AM EST Height 177.8 cm (5' 10 ) 10/19/2024 11:33 AM EST Body Mass Index 28.84 10/19/2024 11:33 AM EST Plan of Treatment Health Maintenance Due Date Last Done Comments Adult Td,Tdap Booster 1962 POTASSIUM LEVEL 1962 DEPRESSION SCREENING 1974 SMOKING Hx and SMOKELESS TOBACCO SCREENING 1975 HEPATITIS C SCREENING 01/28/1980 HIV ONE-TIME SCREENING (18-6 5 YEARS) 01/28/1980 LIPID PANEL 01/28/1980 SCREENING FOR DIABETES 1997 COLOGUARD 2007 COLONOSCOPY 2007 COLORECTAL CANCER SCREENING 2007 FIT TEST 2007 FOBT 2007 SIGMOIDOSCOPY 2007 VIRTUAL COLONOSCOPY 2007 ZOSTER VACCINES (1 of 2) 01/28/2012 PNEUMOCOCCAL VACCINES (50+ years) (3 of 3 - PCV20 or PCV21) 01/09/2020 01/08/2015, 09/30/2013 RSV VACCINE (1 - Risk 60-74 years 1-dose series) 2022 INFLUENZA VACCINE (#1) 2025 09/30/2013 BLOOD PRESSURE 04/20/2025 10/21/2024 COVID-19 VACCINE (4 - 2024-2 6 season) 2025 09/19/2021, 12/23/2020, 12/23/2020 HEPATITIS A VACCINES Aged Out No long er eligible based on patient's age to complete this topic HIB VACCINES Aged Out No longer eligi ble based on patient's age to complete this topic MENINGOCOCCAL VACCINES (ACWY) Aged Out No longer eligible based on patient's age to complete this topic MENINGOCOCCAL VACCINES (B) Aged Out N o longer eligible based on patient's age to complete this topic Medical Devices Not on file Insurance [address] [place] [address] [place], [place] [address]S S S [facility] Care Teams Animal Anatomy Teacher Relationship Specialty Start Date End Date Khadar Martinez MD [address] [place] [address] [place] [address] PCP - General Internal Medicine 09/08/20 Additional Source Comments The information contained in this document represents components of the legal health record. It is not the complete legal health record.[facility]
--- OUTSIDE RECORDS SUMMARY | 2025-06-19 11:18 | XMS_ITS | Encounter Summary ---
Author Organization [facility] Address [address] [facility] [address] [place] [phone] Phone Care Team Providers Care Acid Maker Name Role Phone Khadar Martinez MD Primary Care Provider Encounter Details Date Type Department Care Team (Late st Contact Info) Description 08/09/2021 Transcribe Orders Virtual Department [address] [place] [address] Radha Huitron NP [address] [place] [address] Encounter for laboratory testing for COVID-19 virus (Primary Dx) Social History Tobacco Use Types [...] this encounter Results * COVID-19 PCR Order (08/09/2021 4:00 PM EST) COVID Testing Status Specimen received in analyzing lab. Results should be available within 24 to 48 hrs. [facility] Symptomatic? NO [facility] Other 08/09/2021 4:00 PM EST 08/09/2021 5:44 PM EST us Radha Zofia Tomy CLOTH MENDER BODY FLUIDS AND STOOLS O RDERABLES Final Result [facility] [address] [place] [address] [facility] [address] [place] [id number] documented in this encounter Visit Diagnoses Diagnosis Encounter for laboratory testing for COVID-19 virus- Primary documented in this encounter Additional Health Concerns Infection Onset Date Last Indicated Resolved Time CoV-Exposed Comment:Recent close contact documented in the COVID-19 PCR/PRO order 08/02/2021 08/09/2021 08/17/2021 1:[address] CoV-Risk 10/06/2021 10/06/2021 10/16/2021 1:23 AM EST CoV-Risk 09/16/2024 09/16/2024 09/27/2024 1:22 AM EST Influenza A 09/16/2024 09/16/2024 09/23/2024 1:24 AM EST CoV-Risk 10/19/2024 10/19/2024 10/30/2024 1:23 AM EST documented as of this encounter Care Teams Acid Maker Relationship Specialty Start Date End Date Khadar Martinez MD [address] [place] [address] [place] [address] PCP - General Internal Medicine 09/08/20 documented as of this encounter Additional Source Comments The information contained in this document represents components of the legal health record. It is not the complete legal health record.[facility]
--- OUTSIDE RECORDS SUMMARY | 2025-06-19 11:18 | XMS_ITS | Patient Health Record ---
Author Organization [facility] Address [address] [place] [id number] Care Team Providers Care Boilermaker Welder Name Role Phone Juan SHEETS, Khadar Primary Care Provider Willie Wilkerson [phone] Allergies Allergen (clinical drug ingredient) Drug/Non Drug Allergy documented on EMR Reaction Allergy Type Onset Date Status Penicillin hives Drug Allergy Active montelukast Singulair Unknown Drug Allergy Activ e Dolacet Unknown Drug Allergy Active Reason For Referral No Information Medications Medication SIG (Take, Route, Frequency, Duration) Notes Start Date End Date Status Propranolol HCl ER 160 MG TAKE 1 CAPSULE BY MOUTH EVERY DAY ONCE A DAY Oral Once a day Active hydroCHLOROthiazide 25 MG TAKE 1 TABLET BY MOUTH EVERY DAY Oral Once a day Active Albuterol 90 MCG/ACT as directed Inhalat ion as needed Active Aspirin 81 MG 1 tablet Orally Once a day Active Primidone 50 MG 4 tablets Orally twi ce a day Active Immunizations Vaccine Route Administration Date Status Comme nts Influenza Unknown 10/30/2018 Refused Problems Problem Type SNOMED Code ICD Code Onset Dates Problem Status W/U Status Risk Notes Problem 82034712 Rectal bleeding (K62.5) Active confirmed Problem 547297802 Encounter for screening for malignant neoplasm of colon (Z12.11) Active confirmed Problem 367418750 History of adenomatous polyp of colon (Z86.010) Active confirmed Problem 726525342 Abdominal pain, left lower quadrant (R10.32) Active confirmed Problem 135994429 Rectal burning (K62.89) Active confirmed Vital Signs Blood pressure diastolic 77 mm Hg 03/17/2025 Height 70.5 in 03/17/2025 Blood pressure systolic 111 mm Hg 03/17/2025 Weight 211 lbs 03/17/2025 BMI 29.84 kg/m2 03/17/2025 Encounters Encounter Location Date Provider Diagnosis [facility] [address] [place] [address] 03/17/2025 Willie Reese History of adenomato us polyp of colon Z86.010 ; Preprocedural examination Z01.818 and Encounter for screening for malignant neoplasm of colon Z12.11 [facility] [address] [place] [address] 10/24/2024 Willie Reese [facility] [address] [place] [address] 03/17/2025 Willie Reese Assessments Encounter Date Diagnosis (ICD Code) Assessment Notes Treatment Notes Treatment Clinical Notes Section Notes 03/17/2025 History of adenomatous polyp of colon (ICD-10 - Z86.010) Overall, Adi appears quite well. He is not having any new or worrisome GI complaints. We did discuss his history and whether or not he requires a screening colonoscopy at this point. He would be in favor of holding off on that as the preps in the past have always irritated his hemorrhoids. He reports that will then take a month or 2 to sort of calm down and get back to normal. I did advise him that given his history of just a small adenoma removed many years ago and then 2 consecutive negative colonoscopies, guidelines would agree that holding off for a total of 10 years would not be unreasonable. As such I shall place him in a colonoscopy recall for 2028. However, I did advise him to speak with you and try to get a Cologuard test within a couple of years if he goes on Medicare or if perhaps his insurance was to change to a different company by then. If that Cologuard test is negative we could then wait until 2028. If it happened to be positive or if he develops any new or worrisome symptoms before that we could always proceed sooner. Adi was very comfortable with that plan. In regard to the hemorrhoids we did review that and as long as they are not too bothersome he could simply live with them . However, I did advise him that if they are problematic for him with either pain or bleeding he could follow-up and get a referral to see Dr. Greenberg. If things are stable he will see me as needed. Thank you again for allowing me to have participated in Adi's care. Please do not hesitate to contact me if I can be of any further assistance in the interim. 03/17/2025 Preprocedural examination (ICD-10 - Z01.818) Overall, Adi appears quite well. He is not having any new or worrisome GI complaints. We did discuss his history and whether or not he requires a screening colonoscopy at this point. He would be in favor of holding off on that as the preps in the past have always irritated his hemorrhoids. He reports that will then take a month or 2 to sort of calm down and get back to normal. I did advise him that given his history of just a small adenoma removed many years ago and then 2 consecutive negative colonoscopies, guidelines would agree that holding off for a total of 10 years would not be unreasonable. As such I shall place him in a colonoscopy recall for 2028. However, I did advise him to speak with you and try to get a Cologuard test within a couple of years if he goes on Medicare or if perhaps his insurance was to change to a different company by then. If that Cologuard test is negative we could then wait until 2028. If it happened to be positive or if he develops any new or worrisome symptoms before that we could always proceed sooner. Adi was very comfortable with that plan. In regard to the hemorrhoids we did review that and as long as they are not too bothersome he could simply live with them . However, I did advise him that if they are problematic for him with either pain or bleeding he could follow-up and get a referral to see Dr. Greenberg. If things are stable he will see me as needed. Thank you again for allowing me to have participated in Adi's care. Please do not hesitate to contact me if I can be of any further assistance in the interim. 03/17/2025 Encounter for screening for malignant neoplasm of colon (ICD-10 - Z12.11) We will plan for a colonoscopy in 01/2029. But [address] Dr. Martinez for a Cologuard test in 2 to 3 years. If negative then we will do a colonoscopy in 01/2029. If positive then we would do a colonoscopy sooner. Call me if bowel movements change or increased bleeding. Overall, Adi appears quite well. He is not having any new or worrisome GI complaints. We did discuss his history and whether or not he requires a screening colonoscopy at this point. He would be in favor of holding off on that as the preps in the past have always irritated his hemorrhoids. He reports that will then take a month or 2 to sort of calm down and get back to normal. I did advise him that given his history of just a small adenoma removed many years ago and then 2 consecutive negative colonoscopies, guidelines would agree that holding off for a total of 10 years would not be unreasonable. As such I shall place him in a colonoscopy recall for 2028. However, I did advise him to speak with you and try to get a Cologuard test within a couple of years if he goes on Medicare or if perhaps his insurance was to change to a different company by then. If that Cologuard test is negative we could then wait until 2028. If it happened to be positive or if he develops any new or worrisome symptoms before that we could always proceed sooner. Adi was very comfortable with that plan. In regard to the hemorrhoids we did review that and as long as they are not too bothersome he could simply live with them . However, I did advise him that if they are problematic for him with either pain or bleeding he could follow-up and get a referral to see Dr. Greenberg. If things are stable he will see me as needed. Thank you again for allowing me to have participated in Adi's care. Please do not hesitate to contact me if I can be of any further assistance in the interim. Plan Of Treatment Future Test Test Name Order Date COLONOSCOPY 01/21/2014 COLONOSCOPY 10/30/2018 Insurance Providers Payer Name Payer Address Payer Phone Subscriber Number Group Number Insured Name Patient Relationship to Insured Coverage Start Date Coverage End Date [facility] [address] [facility] [place] [phone] [id number] ADI LEES Self - patient is the insured 4 Medical (General) History Medical History History ICD Code Denies [place],DM,CVA,Lung disease,renal dise ase He had a colonoscopy with a small tubular adenoma removed in 10/2007- also noted were internal hemoorhoids; neg. colonoscopy in 06/2014 except for internal hemorrhoids and diverticulosis A. fib after his aortic valv e surgery 2013-sees Dr. Zamora at [facility]- Afib has resolved; tissue valve- bovine/porcine Essential tremor- uses Propranolol and P rimidone hypertension Negative screening colonosco py in January 2019 other than diverticulosis and hemorrhoids. Surgical History Surgery Date(Month/Year) cyst removal appendectomy Aortic valve replacement on 09/29/13 at [facility]- - tissue valve- bovine/porcine
[2025-06-19 11:20] LABS: Alanine Aminotransferase 29 U/L (0-40); Albumin Level 4.5 g/dL (3.5-5.0); Alkaline Phosphatase 59 U/L (39-117); Anion Gap 9 (12-20); Aspartate Amino Transferase 30 U/L (5-37); Blood Urea Nitrogen 15 mg/dL (9-16); Calcium 9.2 mg/dL (8.4-10.2); Carbon Dioxide 32 mmol/L (22-29); Chloride 101 mmol/L (96-108); Cholesterol 256 mg/dL (<200); Estimated Glomerular Filt Rate > 60; HDL Cholesterol 68 mg/dL (>40); Potassium 4.1 mmol/L (3.3-5.1); Sodium 138 mmol/L (135-145); Total Protein 7.8 g/dL (6.5-8.0); Triglycerides 77 mg/dL (<150)
[2025-06-19 11:35] LABS: PSA,Total (Free>4and<10) 0.27 ng/mL (0.00-4.00)
[2025-06-19 12:24] LABS: Free T4 (Free Thyroxine) 0.93 ng/dL (0.71-1.85)
== END 2025-06-19 10:25 | disposition home or self-care (01) ==
LOC: HO.LNP 10:24
PROVIDERS: Visit Provider Internal Medicine
DX: Z00.00 Encounter for general adult medical examination without abnormal findings (principal); I10 Essential (primary) hypertension; E78.00 Pure hypercholesterolemia, unspecified; E03.9 Hypothyroidism, unspecified; Z12.5 Encounter for screening for malignant neoplasm of prostate
CPT/HCPCS: 80053; 80061; 81001; 84153; 84439; 84443; 85025

== ENCOUNTER 2025-08-03 12:11 | Outpatient (REF) | payer OTHER, SELFPAY ==
[2025-08-03 12:13] LABS: MANUAL DIFF FLAG NO
[2025-08-03 12:33] LABS: Hematocrit 44.7 % (42.0-52.0); Hemoglobin 15.1 g/dl (14.0-18.0); Imm Gran Abs Auto 0.02 X10*3/uL (0.00-0.03); Imm Gran Pct Auto 0.4 % (0.0-0.4); Lymphocytes Absolute Auto 2.0 X10*3/uL (1.2-4.9); Mean Corpuscular HGB Conc 33.8 g/dl (31.0-36.0); Mean Corpuscular Hemoglobin 33.0 pg (27.0-33.0); Mean Corpuscular Volume 97.8 fL (80.0-98.0); NRBC Abs Auto 0.000 X10*3/uL (0.0-0.012); NRBC Pct Auto 0.0 /100WBC (0.0-0.2); Platelet Count 247 X10*3/uL (160-400); Red Blood Count 4.57 X10*6/uL (4.60-5.80); White Blood Count 4.7 X10*3/uL (4.8-10.8)
== END 2025-08-03 12:12 | disposition home or self-care (01) ==
LOC: HO.LNP 12:11
PROVIDERS: Visit Provider Internal Medicine
DX: D72.820 Lymphocytosis (symptomatic) (principal)
CPT/HCPCS: 85025